=== PATIENT | female | born 1960 | race Caucasian/White ===

== ENCOUNTER → 2016-12-19 | Outpatient (CLI) | payer BC | LOC: MC.RAD 14:50 | DX: Z12.31 Encounter for screening mammogram for malignant neoplasm of breast (principal) ==

== ENCOUNTER → 2020-03-03 | Outpatient (CLI) | payer BC | LOC: ZCOL.LAB 11:03 | DX: R50.9 Fever, unspecified (principal); R15.1 Fecal smearing; R15.2 Fecal urgency; R19.7 Diarrhea, unspecified; R19.8 Other specified symptoms and signs involving the digestive system and abdomen ==

== ENCOUNTER → 2020-03-09 | Outpatient (CLI) | payer OTHER ==
[2020-03-09 13:13] LABS: BASO # 0.1 (0.0-0.2); BASO % 0.8 % (0.0-2.0); EOS % 0.2 % (0-4.0); GRAN # 10.5 (1.4-6.5); GRAN % 83.1 % (42.2-75.2); HEMOGLOBIN 10.3 g/dl (12.5-16.0); LYMPH # 0.8 (1.2-3.4); MEAN CELL VOLUME 107 fl (80.0-100.0); MEAN CORPUSCULAR HEMOGLOBIN 35 pg (27.0-31.0); MEAN CORPUSCULAR HGB CONC 33 g/dl (33.0-37.0); MONO # 1.1 (0.1-0.6); MONO % 8.6 % (1.7-9.3); PLATELET COUNT 164 K/mm3 (130-400); RED BLOOD COUNT 2.95 M/mm3 (4.10-5.30); REDCELL DISTRIBUTION WIDTH-CV 18.8 % (11.5-14.5)
[2020-03-09 13:16] LABS: HEMATOCRIT 31.5 % (37.0-47.0)
[2020-03-09 13:49] LABS: CREATININE, serum 0.78 (0.52-1.25); POTASSIUM 3.4 mmol/L (3.4-5.0)
[2020-03-09 13:50] LABS: ALBUMIN 3.3 gm/dL (3.5-5.0); BILIRUBIN,DIRECT 4.2 mg/dL (0.0-0.4); BILIRUBIN,TOTAL 5.1 mg/dL (0.0-1.0); TOTAL PROTEIN 7.3 gm/dL (6.4-8.2)
[2020-03-09 13:54] LABS: PROTHROMBIN TIME 11.6 SECONDS (9.7-12.8)
[2020-03-13 12:17] LABS: ANA SCREEN with REFLEX Negative (Negative)
== END ==
LOC: COL.RAD 11:37
PROVIDERS: Family Medicine
DX: K76.89 Other specified diseases of liver (principal); K82.8 Other specified diseases of gallbladder; K81.9 Cholecystitis, unspecified

== ENCOUNTER → 2020-03-14 | Outpatient (CLI) | payer OTHER | LOC: COL.RAD 11:05 | DX: C79.9 Secondary malignant neoplasm of unspecified site (principal); C22.9 Malignant neoplasm of liver, not specified as primary or secondary; M89.9 Disorder of bone, unspecified | CPT/HCPCS: Q9967 ==

== ENCOUNTER → 2020-03-29 | Outpatient (CLI) | payer OTHER ==
[~2020-03-29] VITALS: Ht 149.9 cm; Wt 61.4 kg
[2020-03-29] VITALS (12 sets, daily range): BP systolic 96–126; BP diastolic 57–78; PULSE 85–96
[~2020-03-29] MED LIST: ANTI-DIARRHEAL2 MG PO; CALCIUM 600 PLU1 TAB PO; ESTRACE 1MG1 MG/TAB PO; LASIX 20MG TABL20 MG PO; MULTIPLE VITAMI1 CAP PO; PROBIOTICA100 Milli1 PO; VITAMINC1000TA PO
[2020-03-29 12:41] LABS: INR 1.1 (0.8-3.0); PROTHROMBIN TIME 12.7 SECONDS (9.7-12.8)
--- NOTE | 2020-03-29 12:50 | NUR ---
pt to ct per wheelchair. Pt positioned on ct table in supine position. Monitors applied.
--- NOTE | 2020-03-29 13:05 | NUR ---
Dr Silveira into talk with pt.
--- NOTE | 2020-03-29 13:15 | NUR ---
Specimens obtained by Dr Silveira and placed in formalin. Specimen labeled. Gel foam placed into biopsy site.
--- NOTE | 2020-03-29 14:35 | NUR ---
Int dc'd and catheter tip intact. 2x2 and coban to right AC site. Pressure to site per coban.
--- NOTE | 2020-03-29 14:50 | NUR ---
Pts ride here pt out to car per wheelchair. Denies complaints at this time. Resp even and easy. Pt up and into car with out assistance.
== END ==
LOC: COL.RAD 11:52
PROVIDERS: Internal Medicine
DX: C22.0 Liver cell carcinoma (principal)